=== PATIENT | female | born 2000 | race Caucasian/White ===

== ENCOUNTER 2023-11-27 17:13 | Emergency (ER) | payer MEDICAID ==
[2023-11-27 17:43] LABS: APPEARANCE,URINE SLIGHTLY CLOUDY; BILIRUBIN,URINE SMALL (NEGATIVE); COLOR,URINE YELLOW; GLUCOSE,URINE NEGATIVE (NEGATIVE); KETONES,URINE TRACE mg/dL (NEGATIVE); LEUKOCYTE ESTERASE,URINE TRACE (NEGATIVE); NITRITE,URINE NEGATIVE (NEGATIVE); OCCULT BLOOD,URINE LARGE (NEGATIVE); PH,URINE 6.5 (5.0-9.0); PROTEIN,URINE 30 mg/dL (NEGATIVE)
[2023-11-27 17:51] LABS: BACTERIA,URINE FEW /HPF (NONE TO FEW); EPITHELIAL CELLS,URINE FEW /LPF; MUCUS,URINE MODERATE /LPF (NEGATIVE); RBC,URINE 20-30 /HPF
[2023-11-27 18:28] LABS: BASOPHILS ABSOLUTE AUTO 0.02 K/uL (0.00-0.20); BASOPHILS PERCENT AUTO 0.2 % (0.0-2.0); EOSINOPHILS ABSOLUTE AUTO 0.05 K/uL (0.00-0.50); EOSINOPHILS PERCENT AUTO 0.6 % (0.0-5.0); HEMATOCRIT 43.5 % (34.0-46.0); HEMOGLOBIN 14.6 g/dL (11.7-15.5); LYMPHOCYTES ABSOLUTE AUTO 1.57 K/uL (0.50-3.50); LYMPHOCYTES PERCENT AUTO 17.4 % (10.0-50.0); MEAN CORPUSCULAR HEMOGLOBIN 30.5 pg (28.2-33.3); MEAN CORPUSCULAR HGB CONC 33.6 g/dL (31.7-36.0); MONOCYTES ABSOLUTE AUTO 0.79 K/uL (0.00-1.00); MONOCYTES PERCENT AUTO 8.8 % (2.0-14.0); NEUTROPHILS ABSOLUTE AUTO 6.59 K/uL (1.40-7.00); PLATELET COUNT,PLT 248 K/uL (150-350); RED BLOOD CELL COUNT 4.78 M/uL (3.77-5.09); RED CELL DISTRIBUTION WIDTH 12.7 % (11.2-14.1)
[2023-11-27 18:44] LABS: ALBUMIN 4.9 g/dL (3.4-5.0); ANION GAP 8.8 meq/L (7-15); BILIRUBIN TOTAL 0.8 mg/dL (0.2-1.0); CALCIUM 10.3 mg/dL (8.5-10.1); CARBON DIOXIDE,CO2 30.2 mmol/L (21.0-32.0); CREATININE 1.07 mg/dL (0.51-1.17); EST CRCL DRUG DOSING (CG) 62.76 mL/min; PROTEIN TOTAL,TP 8.4 g/dL (6.4-8.2)
[2023-11-27] MEDS: Nitrofurantoin Monohydrate/Macrocrystalline 100 MG Cap PO ONE (19:55)
[2023-11-27] MEDS: Sodium Chloride 0.9% 10 ML Syringe FLUSH PRN (19:55)
== END 2023-11-27 20:00 | disposition home or self-care (01) ==
LOC: LL.ED 17:13
DX: M54.9 Dorsalgia, unspecified (principal); N39.0 Urinary tract infection, site not specified; Z86.16 Personal history of COVID-19; Z79.899 Other long term (current) drug therapy; Z91.013 Allergy to seafood
CPT/HCPCS: 36415; 74176; 80053; 81001; 81025; 85025; 87086; 99284; A9270-GY; J3490

== ENCOUNTER 2024-04-08 19:30 | Emergency (ER) | payer MEDICAID, OTHER ==
[2024-04-08] MEDS: Ibuprofen 600 MG Tab PO ONE (20:18)
== END 2024-04-08 20:45 | disposition home or self-care (01) ==
LOC: LL.ED 19:30
DX: S69.92XA Unspecified injury of left wrist, hand and finger(s), initial encounter (principal); Z91.013 Allergy to seafood; Z79.899 Other long term (current) drug therapy; Z86.16 Personal history of COVID-19; W23.1XXA Caught, crushed, jammed, or pinched between stationary objects, initial encounter; Y99.0 Civilian activity done for income or pay; Y93.89 Activity, other specified
CPT/HCPCS: 73120; 99283; A9270

== ENCOUNTER 2024-05-19 19:58 | Emergency (ER) | payer OTHER, MEDICAID ==
[2024-05-19] MEDS: Sodium Chloride 0.9% 1,000 ML IV ONE (20:23)
[2024-05-19 20:25] LABS: BASOPHILS ABSOLUTE AUTO 0.02 K/uL (0.00-0.20); BASOPHILS PERCENT AUTO 0.3 % (0.0-2.0); EOSINOPHILS ABSOLUTE AUTO 0.01 K/uL (0.00-0.50); EOSINOPHILS PERCENT AUTO 0.1 % (0.0-5.0); HEMATOCRIT 44.2 % (34.0-46.0); HEMOGLOBIN 15.2 g/dL (11.7-15.5); LYMPHOCYTES ABSOLUTE AUTO 1.47 K/uL (0.50-3.50); LYMPHOCYTES PERCENT AUTO 19.5 % (10.0-50.0); MEAN CORPUSCULAR HEMOGLOBIN 30.6 pg (28.2-33.3); MEAN CORPUSCULAR HGB CONC 34.4 g/dL (31.7-36.0); MEAN CORPUSCULAR VOLUME 89.1 fL (84.0-98.0); MONOCYTES PERCENT AUTO 6.6 % (2.0-14.0); NEUTROPHILS ABSOLUTE AUTO 5.54 K/uL (1.40-7.00); NEUTROPHILS PERCENT AUTO 73.5 % (45.0-80.0); PLATELET COUNT,PLT 244 K/uL (150-350); RED BLOOD CELL COUNT 4.96 M/uL (3.77-5.09); RED CELL DISTRIBUTION WIDTH 12.4 % (11.2-14.1); WHITE BLOOD CELL COUNT,WBC 7.5 K/uL (4.0-10.2)
[2024-05-19] MEDS: Sodium Chloride 0.9% 10 ML Syringe FLUSH PRN (20:33)
[2024-05-19] MEDS: Ketorolac 15 MG/ML SDV IVPUSH ONE (20:33)
[2024-05-19] MEDS: Ondansetron 4 MG/2 ML SDV IVPUSH ONE (20:34)
[2024-05-19 21:08] LABS: ALANINE AMINOTRANSFERASE,ALT 17 U/L (12-78); ALBUMIN 4.1 g/dL (3.4-5.0); ALKALINE PHOSPHATASE 57 IU/L (46-116); ANION GAP 10.9 meq/L (7-15); ASPARTATE AMNIOTRANSFERASE,AST 13 U/L (15-37); BILIRUBIN TOTAL 0.6 mg/dL (0.2-1.0); BLOOD UREA NITROGEN,BUN 8 mg/dL (7-18); CARBON DIOXIDE,CO2 29.1 mmol/L (21.0-32.0); CHLORIDE,CL 108 mmol/L (98-107); ESTIMATED GFR 107 mL/min (>=60); GLUCOSE RANDOM 136 mg/dL (70-99); MAGNESIUM 2.2 mg/dL (1.8-2.4); PROTEIN TOTAL,TP 7.4 g/dL (6.4-8.2); SODIUM,NA 144 mmol/L (136-145)
[2024-05-19] MEDS ORDERED: Sodium Chloride 0.9% 500 ML IV SCH (21:45)
[2024-05-19] MEDS: Loperamide 2 MG Tab PO ONE (21:56)
[2024-05-19] MEDS: Take Home: Ondansetron 4 MG Tab.DIS, 5 Tab Pack PO ONE (21:57)
== END 2024-05-19 22:15 | disposition home or self-care (01) ==
LOC: LL.ED 19:58
DX: U07.1 COVID-19 (principal); E86.0 Dehydration; Z91.013 Allergy to seafood; Z79.899 Other long term (current) drug therapy; Z86.16 Personal history of COVID-19
CPT/HCPCS: 36415; 80053; 82375; 83605; 83735; 84703; 85025; 93005; 93010; 96361; 96374; 96375; 99284; 99285-25; A9270-GY; J1885; J2405; J3490; J7030; Q0162; U0002